=== PATIENT | male | born 1945 | race Caucasian/White ===

== ENCOUNTER 2016-10-31 16:11 | Observation (INO) | payer MEDICARE ==
[2016-10-31 16:41] LABS: Mean Cell Volume 96.3 fl (78-100); Mean Corpuscular Hemoglobin 32.6 pg (26-32); Mean Platelet Volume 10.9 fl (6-9.5); Platelet Count 275 K/mm3 (150-450); Red Blood Count 4.36 M/mm3 (4.1-5.6); Red Cell Distribution Width 12.7 % (11.5-14.0); White Blood Count 6.7 K/mm3 (4.0-10.5)
[2016-10-31 17:02] LABS: ALBUMIN 3.8 g/dL (3.4-5.0); ALKALINE PHOSPHATASE 68 U/L (46-116); ANION GAP 13.8 MEQ/L (5-15); BLOOD UREA NITROGEN 13 mg/dL (9-20); CHLORIDE 101 mEq/L (98-107); Carbon Dioxide 28.7 mEq/L (21-32); Glucose 112 MG/DL (70-110); SGOT/AST 46 U/L (15-37); SGPT/ALT 67 U/L (12-78); SODIUM 141 mEq/L (136-145); Total Protein 7.8 gm/dL (6.4-8.2)
[2016-10-31] MEDS: POTASSIUM CHLORIDE 20 mEq IN WATER 100ML 100 ML IV SCH ×2 (18:33→20:38)
[2016-10-31] MEDS: Dextrose 5% -0.45 NaCl 1000 ML 1,000 ML IV SCH (18:36)
[2016-10-31] MEDS: Namenda 5 MG PO SCH (19:51)
[2016-10-31] MEDS: Seroquel 100 MG PO SCH (19:51)
[2016-10-31] MEDS: ZOCOR 20MG PO SCH (19:51)
[2016-10-31] MEDS: Aricept 10 MG PO SCH (19:51)
[2016-10-31] MEDS ORDERED: Klonopin 0.5 MG PO SCH (22:00)
[2016-10-31 23:35] LABS: COMPLETE URINE MICROSCOPIC? YES; Collection Type CLEAN CATCH; Epithelial Cells RARE /HPF (FEW); Ph 5.5 (5-6)
[2016-11-01] MEDS: Klor Con 10 MEQ PO SCH ×3 (02:40→14:47)
--- NOTE | 2016-11-01 08:42 | XRAY ---
Indication: Generalized weakness. Comparison: None PA/lateral chest clear. Heart is not enlarged. Descending aorta is slightly tortuous. Vascularity normal. Bony thorax intact with mild osteopenia and degenerative changes. Impression: Nonacute chest. Comment: Preliminary interpretation was made by [facility]. No discrepancy.
--- NOTE | 2016-11-01 08:45 | XRAY ---
Indication: Generalized weakness. Multiple contiguous axial images obtained through the head without contrast. Comparison: None Age-appropriate global atrophy and minimal periventricular degenerative micro-ischemia bilaterally. No acute intracranial hemorrhage, abnormal extra-axial fluid collection, or mass effect. Fourth ventricle is midline without hydrocephalus. Bony calvarium intact. Visualized paranasal sinuses and mastoid air cells are clear. Impression: Nonacute senile brain. Comment: Preliminary interpretation was made by [facility]. No discrepancy. CT DI 70.62
[2016-11-01] MEDS ORDERED: Maxzide-25MG Tablet PO SCH (10:00)
[2016-11-01] MEDS ORDERED: Zestril 10 MG PO SCH (10:00)
[2016-11-01] MEDS ORDERED: LOPID 600 MG PO SCH (10:00)
[2016-11-01] MEDS ORDERED: ZOLOFT 50 MG TABLET PO SCH (10:00)
[2016-11-01] MEDS ORDERED: [UNRECOGNIZED DRUG - OTHER] PO SCH (10:00)
[2016-11-01] MEDS ORDERED: NON-FORMULARY ITEM (Multivitamin [Multivitamins] 1 EACH) PO SCH (10:00)
[2016-11-01] MEDS ORDERED: monoPRIL 10 MG PO SCH (10:00)
[2016-11-01] MEDS ORDERED: THERAGRAN MULTIVITAMIN PO SCH (10:00)
[2016-11-01] MEDS ORDERED: ENOXAPARIN SODIUM SQ SCH (10:00)
[2016-11-01] MEDS: POTASSIUM CHLORIDE 20 mEq IN WATER 100ML 100 ML IV SCH ×2 (10:31→12:37)
[2016-11-01] MEDS: Aricept 10 MG PO SCH (10:37)
[2016-11-01] MEDS: ZOCOR 20MG PO SCH (10:38)
[2016-11-01] MEDS: Namenda 5 MG PO SCH (10:39)
[2016-11-01] MEDS: Seroquel 100 MG PO SCH (10:41)
[2016-11-01] MEDS: Dextrose 5% -0.45 NaCl 1000 ML 1,000 ML IV SCH (14:51)
[2016-11-01 14:59] LABS: MAGNESIUM 1.7 mg/dL (1.8-2.4); TROPONIN 0.022 ng/ml (0.000-0.056)
[2016-11-01] MEDS ORDERED: Magnesium 1 Gm / 100 Ml D5W*** 100 ML IV ONE (15:33)
[2016-11-01 16:50] VITALS: BP 118/61; PULSE 69; O2SAT 90
[2016-11-01] MEDS ORDERED: Klor Con 10 MEQ PO ONE (18:59)
--- NOTE | 2016-11-06 10:00 | DS ---
DISCHARGE DIAGNOSIS: 1. GENERALIZED WEAKNESS - IMPROVED. 2. DIZZINESS - RESOLVED. 3. HYPOKALEMIA (STATUS POST REPLACEMENT OF POTASSIUM). 4. HYPERTENSION. 5. HYPERLIPIDEMIA. 6. HISTORY OF DEMENTIA. 7. CHRONIC OBSTRUCTIVE PULMONARY DISEASE. 8. LOW BACK PAIN - RESOLVED. HOSPITAL COURSE: Mr. Smith is a 70 y/o male with past medical history of hypertension, hyperlipidemia, dementia, and chronic obstructive pulmonary disease. He was seen in the office on 10/31/16 feeling very weak, dizzy, not eating, and not urinating much. Also, he had reported some low back pain. There was no reported history of trauma. Please refer to office notes for details. He was admitted for further work-up and management. Lab work-up on admission was notable for unremarkable CBC. CMP was notable for potassium of 3.0. Troponin was negative. UA was essentially negative. Chest x-ray had shown no acute changes. CT scan of head had revealed nonacute senile brain. EKG showed left anterior fascicular block (no prior EKG available for comparison). It also did show nonspecific Q waves in 1, aVL, and V5. Patient was placed on IV fluids. He underwent replacement of potassium. During his further course, he improved clinically. Remained hemodynamically stable. Labs obtained today again showed potassium of 3.0. He is receiving replacement potassium at this time. The rest of his course was essentially, more or less, unremarkable. He is otherwise overall feeling better. He was able to ambulate without difficulty. His dizziness has resolved. He is tolerating diet. As per patient's , he ate well today. He denies any other new complaints. He is feeling well and is wishing to go home. Will get physical therapy to ambulate patient and patient is being discharged home in stable condition. Please refer to discharge medication list from 11/01/16 for details of medications on discharge. PHYSICAL EXAMINATION: His physical examination at the time shows patient to be alert and awake. He denies any complaints. Appears comfortable. VITALS: BP 119/64, heart rate 61, respiratory rate 19, temperature 97.6, O2 saturations of 90-92% on room air. HEENT: No pallor or icterus noted. NECK: No JVD present. CVS: S1 and S2 present. RESPIRATORY: Breath sounds bilaterally clear to auscultation. ABDOMEN: Soft, nontender. NEURO: He is alert, awake, and answers simple questions appropriately. EXTREMITIES: There is no edema on bilateral lower extremities. LABORATORY DATA: As noted. PLAN: Prior to discharge will obtain repeat potassium, EKG, and 1 more troponin. Will obtain PT/OT evaluation. Will ambulate patient. I have advised patient to follow-up with me in the office in 1 week. Compliance with diet and medications was stressed. Patient's medication changes were discussed with patient's in detail. I have advised patient/ to call me with any concerns and to return to the Emergency Room immediately if any new signs and symptoms or reappearance of previous signs and symptoms is noted. The patient's clinical condition, work-up results, and plan of management including plan after discharged were discussed with patient and . They seem to be in understanding and agreement.
== END 2016-11-01 19:50 | disposition home or self-care (01) ==
LOC: MED SURG 16:11
PROVIDERS: ADMIT General Practice; ATTEND General Practice
DX: M62.81 Muscle weakness (generalized) (principal); F45.8 Other somatoform disorders; E87.6 Hypokalemia; I10 Essential (primary) hypertension; E78.5 Hyperlipidemia, unspecified; F03.90 Unspecified dementia, unspecified severity, without behavioral disturbance, psychotic disturbance, mood disturbance, and anxiety; J44.9 Chronic obstructive pulmonary disease, unspecified; M54.5 Low back pain
CPT/HCPCS: 36415; 70450; 71020; 80053; 81000; 82550; 83735; 84132; 84443; 84484; 85027; 93005; 93268; G0378; J1650; J3475; J3480; A9270-GY